=== PATIENT | male | born 1965 | race Caucasian/White ===

== ENCOUNTER 2017-12-15 12:22 | Inpatient (IN) | payer OTHER ==
[~2017-12-15] VITALS: Ht 177.8 cm; Wt 105.4 kg
[~2017-12-15 12:22] MED LIST: AMITRIPTYLINE H50 MG PO; AMITRIPTYLINE100 M1 PO; ATARAX,VISTARIL50 MG PO; CELEXA20 MG PO; CELEXA40 MG PO; CHLORPHENIRAMINE4 MG PO; Cipro PO; Combivent IH; DILANTIN100 MG PO; DOLOPHINE HCL5 MG PO; DOLOPHINE PO; ELAVIL50 MG PO; ENDOCET 5-3251 EACH PO; Elavil PO; GABAPENTIN600 MG PO; GABAPENTIN800 MG PO; Habitrol,Nicoderm CQ TD; KLONOPIN0.5 M1 PO; KLONOPIN1 M2 PO; KLONOPIN1 MG PO; KLONOPIN2 MG PO; KlonoPIN PO; Klonopin PO; LEVAQUIN500 MG PO; LEXAPRO20 MG PO; LIDODERM 5% P1 PATCH TD; LISINOPRIL10 MG PO; LISINOPRIL20 MG PO; LISINOPRIL40 MG PO; METHADONE10 MG PO; MOTRIN800 MG PO; Methadone PO; Miralax, Glycolax PO; NAPROXEN500 MG PO; NEURONTIN600 MG PO; NEURONTIN800 MG PO; NICODERM CQ1 EAC2 TD; NICOTINE PATCH1 EAC2 TD; NOHOMEMEDS; Neurontin PO; OXECTA5 MG PO; OXYCODONE HCL5 M1 PO; OXYCODONE HCL5 MG PO; OXYCODONE10 MG PO; OxyCODONE PO; PAXIL10 MG PO; PAXIL20 MG PO; PERCOCET 10/1 TABLET PO; PERCOCET 5/31 TABLET PO; PHENYTOIN SODI300 MG PO; PREDNISONE10 MG PO; RANITIDINE HCL150 M1 PO; RISPERDAL1 MG PO; ROXICODONE5 MG PO; Robitussin AC,Tussi- PO; Robitussin, Organidi PO; TESSALON200 MG PO; TRILEPTAL300 MG PO; TRIPLE ANTIB28.35 GM TP; VENTOLIN HFA18 GM IH; XANAX1 MG PO; Xanax PO; ZITHROMAX Z-PA250 MG PO; ZITHROMAX500 MG PO; Zestril,Prinivil PO; Zithromax PO; celeXA PO; oxyCODONE PO; predniSONE PO
[2017-12-15 13:42] LABS: HEMATOCRIT 48.2 % (38.0-50.0); HEMOGLOBIN 16.6 G/DL (12.5-16.6); MCH 30.7 PG (29.0-34.0); MCHC 34.4 G/DL (30.0-36.0); MCV 89.1 FL (86-99); PLATELET COUNT 162 K/uL (156-360); RBC DIS.WIDTH-SD 42.7 % (39-53); RED BLOOD COUNT 5.41 M/uL (4.00-5.50); WHITE BLOOD COUNT 6.4 K/uL (4.1-10.2)
[2017-12-15 13:49] LABS: AMPHETAMINE NEGATIVE (500 ng/mL); BENZODIAZEPINES PRESUMPTIVE POSITIVE (150 ng/mL); COCAINE NEGATIVE (150 ng/mL); METHADONE PRESUMPTIVE POSITIVE (200 ng/mL); METHAMPHETAMINE NEGATIVE (500 ng/mL); OPIATES (MORPHINE) NEGATIVE (100 ng/mL); PHENCYCLIDINE NEGATIVE (25 ng/mL); THC CANNABINOIDS PRESUMPTIVE POSITIVE (50 ng/mL); TRICYCLIC ANTIDEPRESSANTS NEGATIVE (300 ng/mL)
[2017-12-15 13:50] LABS: BARBITURATES NEGATIVE (200 ng/mL); BUPRENORPHINE NEGATIVE (10 ng/mL); OXYCODONE NEGATIVE (100 ng/mL); PROPOXYPHENE NEGATIVE (300 ng/mL)
[2017-12-15 13:52] LABS: CHLORIDE 104 mEq/L (99-109); POTASSIUM 4.6 mEq/L (3.7-5.4); SODIUM 136 mEq/L (136-147)
[2017-12-15 13:54] LABS: GLUCOSE 73 mg/dL (70-99)
[2017-12-15 13:57] LABS: SERUM ETHYL ALCOHOL < 10 mg/dL
[2017-12-15 13:58] LABS: CREATININE 0.8 mg/dL (0.6-1.3); GFR ESTIMATE (CALCULATED) > 59 mL/min/ (58.99-99999)
[2017-12-15 13:59] LABS: UREA NITROGEN (BUN) 14 mg/dL (9-23)
[2017-12-15 14:26] LABS: BENZODIAZEPINES, URINE SCREEN Negative (200 ng/mL)
[2017-12-15] MEDS ORDERED: METHADONE HCL40 MG PO (19:15)
[2017-12-15] MEDS ORDERED: KLONOPIN0.5 M1 PO (19:16)
[2017-12-15] MEDS ORDERED: ADDERALL30 MG PO (19:16)
[2017-12-15] MEDS ORDERED: ZOLOFT50 MG PO (19:17)
[2017-12-15] MEDS ORDERED: MINIPRESS5 MG PO (19:18)
[2017-12-15] MEDS ORDERED: NEURONTIN800 MG PO (19:19)
[2017-12-15 19:33] VITALS: BP 179/108
[2017-12-16 08:13] VITALS: BP 135/86
[2017-12-16 15:34] VITALS: BP 166/105
[2017-12-17 08:08] VITALS: BP 122/70
[2017-12-17 15:45] VITALS: BP 140/84
[2017-12-18 07:50] VITALS: BP 134/91
[2017-12-18 08:27] LABS: ALBUMIN 4.1 G/DL (3.2-4.8); ALKALINE PHOSPHATASE 73 IU/L (3-129); ALT (GPT) 149 IU/L (3-49); AST (GOT) 116 IU/L (2-34); DIRECT BILIRUBIN 0.2 mg/dL (0.0-0.3); TOTAL BILIRUBIN 0.6 MG/DL (0.0-1.0); TOTAL PROTEIN 7.4 G/DL (6.4-8.3)
[2017-12-18 15:38] VITALS: BP 162/75
[2017-12-19 08:06] VITALS: BP 141/77
[2017-12-19 16:17] VITALS: BP 178/101
[2017-12-19 18:52] VITALS: BP 167/93
[2017-12-20 08:07] VITALS: BP 148/86
[2017-12-20 15:42] VITALS: BP 170/92
[2017-12-21 07:54] VITALS: BP 173/86
[2017-12-21] MEDS ORDERED: ZOLOFT100 MG PO (09:10)
[2017-12-21] MEDS ORDERED: ZIPRASIDONE HCL20 MG PO (09:10)
[2017-12-21] MEDS ORDERED: CLONAZEPAM0.5 MG PO (09:19)
== END 2017-12-21 10:15 | disposition home or self-care (01) | DRG 881 ==
LOC: EME 12:22 → 1WEST 16:36 → EDOF 16:36 → 1WEST 18:27 → ENRESERV 18:27 → 1WEST 12-21 10:15
PROVIDERS: Psychiatry & Neurology Psychiatry
DX: F32.9 Major depressive disorder, single episode, unspecified (principal); F41.0 Panic disorder [episodic paroxysmal anxiety]; F12.90 Cannabis use, unspecified, uncomplicated; F63.9 Impulse disorder, unspecified; F11.20 Opioid dependence, uncomplicated; F17.200 Nicotine dependence, unspecified, uncomplicated; J44.9 Chronic obstructive pulmonary disease, unspecified; Z86.73 Personal history of transient ischemic attack (TIA), and cerebral infarction without residual deficits; M79.7 Fibromyalgia; I50.9 Heart failure, unspecified; I11.0 Hypertensive heart disease with heart failure; R45.851 Suicidal ideations; K21.9 Gastro-esophageal reflux disease without esophagitis; F22 Delusional disorders; F10.11 Alcohol abuse, in remission
CPT/HCPCS: 71046; 80048; 80076; 84999; 85027; 90839; 97150 GO; 97166 GO; 99281; 99284; G0480

== ENCOUNTER 2018-03-29 11:45 | Emergency (ER) | payer OTHER ==
[~2018-03-29] VITALS: Ht 177.8 cm; Wt 90.1 kg
[~2018-03-29 11:45] MED LIST changes: +ADDERALL30 MG PO; +CLONAZEPAM0.5 MG PO; +METHADONE HCL40 MG PO; +MINIPRESS5 MG PO; +ZIPRASIDONE HCL20 MG PO; +ZOLOFT100 MG PO; +ZOLOFT50 MG PO
[2018-03-29 13:06] LABS: HEMATOCRIT 42.5 % (38.0-50.0); HEMOGLOBIN 14.8 G/DL (12.5-16.6); MCH 30.9 PG (29.0-34.0); MCHC 34.8 G/DL (30.0-36.0); MCV 88.7 FL (86-99); PLATELET COUNT 186 K/uL (156-360); RBC DIS.WIDTH-CV 12.9 % (11.8-14.6); RBC DIS.WIDTH-SD 42.3 % (39-53); RED BLOOD COUNT 4.79 M/uL (4.00-5.50); WHITE BLOOD COUNT 5.6 K/uL (4.1-10.2)
[2018-03-29 13:15] LABS: CHLORIDE 104 mEq/L (99-109); POTASSIUM 3.7 mEq/L (3.7-5.4); SODIUM 139 mEq/L (136-147)
[2018-03-29 13:17] LABS: GLUCOSE 79 mg/dL (70-99)
[2018-03-29 13:21] LABS: CREATININE 0.7 mg/dL (0.6-1.3); GFR ESTIMATE (CALCULATED) > 59 mL/min/ (58.99-99999)
[2018-03-29 13:22] LABS: UREA NITROGEN (BUN) 10 mg/dL (9-23)
[2018-03-29 14:01] LABS: ALBUMIN 3.7 g/dL (3.2-4.8)
[2018-03-29 14:03] LABS: TOTAL PROTEIN 7.2 g/dL (6.4-8.3)
[2018-03-29 14:05] LABS: TOTAL BILIRUBIN 0.6 mg/dL (0.0-1.0)
[2018-03-29 14:06] LABS: ALKALINE PHOSPHATASE 69 IU/L (3-129)
[2018-03-29 14:09] LABS: ALT (GPT) 93 IU/L (3-49); AST (GOT) 75 IU/L (2-34); DIRECT BILIRUBIN 0.3 mg/dL (0.0-0.3)
[2018-03-29 14:31] LABS: TROP-I INTERPRETATION NEGATIVE; TROPONIN-I < 0.01 ng/mL (0.0-0.30)
[2018-03-29 14:52] LABS: THYROTROPIN (TSH) 6.8 MIU/L (0.4-5.5)
[2018-03-29 15:53] LABS: AMPHETAMINE NEGATIVE (500 ng/mL); BENZODIAZEPINES PRESUMPTIVE POSITIVE (150 ng/mL); COCAINE NEGATIVE (150 ng/mL); METHAMPHETAMINE NEGATIVE (500 ng/mL); OPIATES (MORPHINE) NEGATIVE (100 ng/mL); PHENCYCLIDINE NEGATIVE (25 ng/mL); THC CANNABINOIDS PRESUMPTIVE POSITIVE (50 ng/mL); TRICYCLIC ANTIDEPRESSANTS NEGATIVE (300 ng/mL)
[2018-03-29 15:54] LABS: BARBITURATES NEGATIVE (200 ng/mL); BUPRENORPHINE NEGATIVE (10 ng/mL); METHADONE PRESUMPTIVE POSITIVE (200 ng/mL); OXYCODONE NEGATIVE (100 ng/mL); PROPOXYPHENE NEGATIVE (300 ng/mL)
[2018-03-29] MEDS ORDERED: ROXICODONE5 MG PO (16:16)
[2018-03-29 16:26] VITALS: BP 124/98
[2018-03-29 16:38] LABS: BENZODIAZEPINES, URINE SCREEN Negative (200 ng/mL)
== END 2018-03-29 16:28 | disposition home or self-care (01) ==
LOC: EME 11:45
PROVIDERS: Physician Assistant
DX: R55 Syncope and collapse (principal); E03.9 Hypothyroidism, unspecified; G89.29 Other chronic pain; J44.9 Chronic obstructive pulmonary disease, unspecified; I10 Essential (primary) hypertension; K21.9 Gastro-esophageal reflux disease without esophagitis; I25.2 Old myocardial infarction; M79.7 Fibromyalgia; G90.50 Complex regional pain syndrome I, unspecified; B19.20 Unspecified viral hepatitis C without hepatic coma; F32.9 Major depressive disorder, single episode, unspecified; F41.9 Anxiety disorder, unspecified; F17.200 Nicotine dependence, unspecified, uncomplicated; Z79.891 Long term (current) use of opiate analgesic; Z86.79 Personal history of other diseases of the circulatory system; Z87.19 Personal history of other diseases of the digestive system; Z86.14 Personal history of Methicillin resistant Staphylococcus aureus infection; Z86.73 Personal history of transient ischemic attack (TIA), and cerebral infarction without residual deficits; Z90.49 Acquired absence of other specified parts of digestive tract; Z88.6 Allergy status to analgesic agent; Z88.0 Allergy status to penicillin; Z88.5 Allergy status to narcotic agent
CPT/HCPCS: 70450; 71046; 80048; 80076; 84443; 84484; 84999; 85027; 93005; 99281; 99284